=== PATIENT | male | born 1990 | race Two or more races ===

== ENCOUNTER 2022-02-05 18:52 | Emergency (ER) | payer MEDICAID ==
[~2022-02-05] VITALS: Ht 175.3 cm; Wt 72.6 kg
[2022-02-05] MEDS ORDERED: ONDANSETRON HCL/PF 4 MG/2 ML VIAL IVP ONE (20:30)
[2022-02-05] MEDS ORDERED: KETOROLAC TROMETHAMINE INJ 30 MG/ML VIAL IV ONE (20:30)
[2022-02-05] MEDS ORDERED: IV NS 0.9% 1,000 ML BAG IV ONE (20:30)
[2022-02-05] MEDS ORDERED: DEXAMETHASONE SOD PHOSPHATE 4 MG/ML VIAL IV ONE (20:30)
[2022-02-05] MEDS ORDERED: ONDANSETRON HCL/PF 4 MG/2 ML VIAL ONE (20:41)
[2022-02-05] MEDS ORDERED: KETOROLAC TROMETHAMINE 15 MG/ML VIAL ONE (20:41)
[2022-02-05] MEDS ORDERED: DEXAMETHASONE SOD PHOSPHATE 10 MG/ML VIAL ONE (20:41)
[2022-02-05] MEDS ORDERED: IBUP-1955 PO (21:47)
[2022-02-05] MEDS ORDERED: ONDA4TAB5 PO (21:47)
[2022-02-05 22:02] VITALS: BP 126/65
== END 2022-02-05 22:02 | disposition home or self-care (01) ==
LOC: ER 19:00
DX: U07.1 COVID-19 (principal); R11.2 Nausea with vomiting, unspecified; E86.0 Dehydration; J02.9 Acute pharyngitis, unspecified; R00.0 Tachycardia, unspecified
CPT/HCPCS: 99284; 96374; 96375; 96361; 87426; 87070; 87880; J1100; J2405; J7030; J1885; C9803; 86403-TC

== ENCOUNTER 2023-09-18 10:50 | Emergency (ER) | payer MEDICAID, OTHER ==
[~2023-09-18] VITALS: Ht 175.3 cm; Wt 74.8 kg
[~2023-09-18 10:50] MED LIST: IBUP-1955 PO; ONDA4TAB5 PO
[2023-09-18 10:58] VITALS: TEMP 101
[2023-09-18] MEDS ORDERED: IBUPROFEN 600 MG TABLET ONE (11:27)
[2023-09-18] MEDS ORDERED: CLINDAMYCIN HCL 150 MG CAPSULE ONE (11:27)
[2023-09-18] MEDS: CLINDAMYCIN HCL 150 MG CAPSULE PO ONE (11:28)
[2023-09-18] MEDS: IBUPROFEN 600 MG TABLET PO ONE (11:28)
[2023-09-18] MEDS ORDERED: CLIN300C12 PO (11:53)
[2023-09-18 12:14] VITALS: BP 114/76; O2SAT 100
== END 2023-09-18 12:14 | disposition home or self-care (01) ==
LOC: ER 11:03
DX: J02.9 Acute pharyngitis, unspecified (principal); F17.200 Nicotine dependence, unspecified, uncomplicated; Z79.899 Other long term (current) drug therapy

== ENCOUNTER 2024-09-09 16:03 | Emergency (ER) | payer OTHER ==
[~2024-09-09] VITALS: Ht 175.3 cm; Wt 68.5 kg
[~2024-09-09 16:03] MED LIST changes: +CLIN300C12 PO
[2024-09-09 16:14] VITALS: TEMP 98.1
[2024-09-09] MEDS ORDERED: METOCLOPRAMIDE HCL 10 MG/2 ML VIAL ONE (17:00)
[2024-09-09] MEDS ORDERED: KETOROLAC TROMETHAMINE INJ 30 MG/ML VIAL ONE (17:00)
[2024-09-09] MEDS: KETOROLAC TROMETHAMINE INJ 30 MG/ML VIAL IM ONE (17:12)
[2024-09-09] MEDS: METOCLOPRAMIDE HCL 10 MG/2 ML VIAL IV ONE (17:12)
[2024-09-09] MEDS ORDERED: IBUP-1957 PO (18:43)
[2024-09-09] MEDS ORDERED: ACET-2030 PO (18:43)
[2024-09-09] MEDS ORDERED: SUMA100T16 PO (18:43)
[2024-09-09 18:53] VITALS: BP 101/69; O2SAT 98
== END 2024-09-09 18:54 | disposition home or self-care (01) ==
LOC: ER 16:14
DX: R51.9 Headache, unspecified (principal); R68.84 Jaw pain; F17.200 Nicotine dependence, unspecified, uncomplicated; Z79.1 Long term (current) use of non-steroidal anti-inflammatories (NSAID); Z88.1 Allergy status to other antibiotic agents; Z88.2 Allergy status to sulfonamides; Z79.899 Other long term (current) drug therapy
CPT/HCPCS: 99284; 96374; 96372; J1885; J2765; J7030